=== PATIENT | female | born 1985 | race Caucasian/White ===

== ENCOUNTER → 2016-11-01 | Outpatient (CLI) | payer OTHER | END | disposition home or self-care (01) | LOC: RAD.S 18:15 | DX: Z34.81 Encounter for supervision of other normal pregnancy, first trimester (principal); Z3A.01 Less than 8 weeks gestation of pregnancy ==

== ENCOUNTER → 2016-11-30 | Outpatient (CLI) | payer OTHER | END | disposition home or self-care (01) | LOC: RAD.S 10:44 | DX: O36.80X9 Pregnancy with inconclusive fetal viability, other fetus (principal); Z3A.11 11 weeks gestation of pregnancy ==